=== PATIENT | male | born 1975 | race Caucasian/White ===

== ENCOUNTER 2019-11-14 18:29 | Emergency (ER) | payer OTHER ==
[2019-11-14 18:34] VITALS: BP 145/83
--- NOTE | 2019-11-14 19:21 | ER Document Report ---
ED Medical Screen (RME) - General Chief Complaint: Flank Pain Stated Complaint: FLANK PAIN Time Seen by Provider: 11/14/19 19:15 Notes: Patient is a 44-year-old male who presents emergency department with a chief complaint of right lower quadrant abdominal pain. Patient states that this started about an hour ago. He ended up sweating at that time. He has history of a cholecystectomy and appendectomy in the past. Denies any history of kidney stones. Patient states that he actually feels better now denies any pain. Exam: Soft, nontender abdomen. I have greeted and performed a rapid initial assessment of this patient. A comprehensive ED assessment and evaluation of the patient, analysis of test results and completion of medical decision making process will be conducted by an additional ED providers. TRAVEL OUTSIDE OF THE [place] IN LAST 30 DAYS: No - Related Data Allergies/Adverse Reactions: No Known Allergies Allergy (Verified 11/13/16 13:31) Past Medical History Traumatic Medical History: Reports: Hx Traumatic Brain Injury Past Surgical History: Reports: Hx Appendectomy, Hx Cholecystectomy - Immunizations Hx Diphtheria, Pertussis, Tetanus Vaccination: Yes Physical Exam - Vital signs Vitals: Temp Pulse Resp BP Pulse Ox 97.6 F 79 20 145/83 H 97 11/14/19 18:33 11/14/19 18:33 11/14/19 18:33 11/14/19 18:33 11/14/19 18:33 Course - Vital Signs Vital signs: Temp Pulse Resp BP Pulse Ox 97.6 F 79 20 145/83 H 97 11/14/19 18:33 11/14/19 18:33 11/14/19 18:33 11/14/19 18:33 11/14/19 18:33
[2019-11-14 20:11] LABS: ABSOLUTE BASOPHILS # (AUTO) 0.1 10^3/uL (0.0-0.2); ABSOLUTE EOSINOPHILS # (AUTO) 0.2 10^3/uL (0.0-0.6); ABSOLUTE LYMPHOCYTES (AUTO) 3.5 10^3/uL (0.5-4.7); ABSOLUTE MONOCYTES (AUTO) 0.7 10^3/uL (0.1-1.4); ABSOLUTE NEUT (AUTO) 7.8 10^3/uL (1.7-8.2); EOSINOPHILS % (AUTO) 1.7 % (0-6); HEMOGLOBIN 16.4 g/dL (13.5-17.0); LYMPHOCYTES % (AUTO) 28.3 % (13-45); MEAN CORPUSCULAR HEMOGLOBIN 29.5 pg (27.0-33.4); MEAN CORPUSCULAR VOLUME 87 fl (80-97); MONOCYTES % (AUTO) 5.7 % (3-13); PLATELET COUNT 247 10^3/uL (150-450); RED BLOOD COUNT 5.55 10^6/uL (4.35-5.55); RED CELL DISTRIBUTION WIDTH 13.5 % (11.5-14.0); SEGMENTED NEUTROPHILS % (AUTO) 63.3 % (42-78); TOTAL CELLS COUNTED % (AUTO) 100 %; WHITE BLOOD COUNT 12.3 10^3/uL (4.0-10.5)
[2019-11-14 20:16] LABS: APPEARANCE,URINE SLIGHTLY-CLOUDY; BILIRUBIN,URINE NEGATIVE (NEGATIVE); COLOR,URINE YELLOW; GLUCOSE, URINE NEGATIVE (NEGATIVE); KETONES,URINE NEGATIVE (NEGATIVE); LEUKOCYTE ESTERASE,URINE NEGATIVE (NEGATIVE); NITRITE,URINE NEGATIVE (NEGATIVE); PROTEIN,URINE 100 mg/dL (NEGATIVE); URINE SPECIFIC GRAVITY 1.028; UROBILINOGEN,URINE NEGATIVE mg/dL (<2.0)
[2019-11-14 20:34] LABS: ALBUMIN 4.1 g/dL (3.5-5.0); ALKALINE PHOSPHATASE 82 U/L (38-126); ANION GAP 10 (5-19); ASPARTATE AMINO TRANSFERASE 27 U/L (17-59); BILIRUBIN,DIRECT 0.2 mg/dL (0.0-0.4); BILIRUBIN,TOTAL 0.8 mg/dL (0.2-1.3); BLOOD UREA NITROGEN 24 mg/dL (7-20); CALCIUM 9.7 mg/dL (8.4-10.2); CARBON DIOXIDE 29 mmol/L (22-30); CHLORIDE 98 mmol/L (98-107); GLUCOSE 146 mg/dL (75-110); POTASSIUM 3.8 mmol/L (3.6-5.0); TOTAL PROTEIN 7.7 g/dL (6.3-8.2)
== END 2019-11-14 21:20 | disposition left against medical advice (07) ==
LOC: ER 18:29
DX: R10.31 Right lower quadrant pain (principal); R61 Generalized hyperhidrosis; Z90.49 Acquired absence of other specified parts of digestive tract; Z53.20 Procedure and treatment not carried out because of patient's decision for unspecified reasons
CPT/HCPCS: 36415; 80053; 81001; 85025; 99281

== ENCOUNTER 2019-11-15 08:42 | Emergency (ER) | payer OTHER ==
[2019-11-15] MEDS ORDERED: ONDANSETRON HCL INJ/PF 4 MG/2 ML SDV IV ONE (10:40)
[2019-11-15] MEDS ORDERED: NORMAL SALINE 1000 ML 1,000 ML IV ONE (10:40)
[2019-11-15] MEDS ORDERED: KETOROLAC TROMETHAMINE INJ/PF 30 MG/1 ML SDV IV ONE (10:40)
--- NOTE | 2019-11-15 10:41 | ER Document Report ---
ED Medical Screen (RME) - General Chief Complaint: Abdominal Pain Stated Complaint: ABDOMINAL PAIN Time Seen by Provider: 11/15/19 10:36 Mode of Arrival: Ambulatory Information source: Patient Notes: Otherwise healthy 44-year-old male presenting with right lower quadrant abdominal pain right flank pain that began approximately 24 hours ago. Patient was seen in this emergency department last night, states that he left after his labs are drawn as his pain had completely resolved. He states he has a history of a cholecystectomy and appendectomy. He denies any fevers but reports sweats. Reports nausea without vomiting. Abdomen: Soft, nontender I have greeted and performed a rapid initial assessment of this patient. A comprehensive ED assessment and evaluation of the patient, analysis of test results and completion of the medical decision making process will be conducted by additional ED providers. I have specifically instructed the patient or family members with the patient to immediately return to any nursing staff should anything change in the patient's condition or with their chief complaint. TRAVEL OUTSIDE OF THE [place] IN LAST 30 DAYS: No - Related Data Allergies/Adverse Reactions: meperidine [From Demerol] Adverse Reaction (Verified 11/15/19 10:33) Past Medical History Endocrine Medical History: Reports: Hx Diabetes Mellitus Type 2 Traumatic Medical History: Reports: Hx Traumatic Brain Injury Past Surgical History: Reports: Hx Appendectomy, Hx Cholecystectomy - Immunizations Hx Diphtheria, Pertussis, Tetanus Vaccination: Yes Physical Exam - Vital signs Vitals: Temp Pulse Resp BP Pulse Ox 97.9 F 78 18 128/67 H 97 11/15/19 09:09 11/15/19 09:09 11/15/19 09:09 11/15/19 09:09 11/15/19 09:09 Course - Vital Signs Vital signs: Temp Pulse Resp BP Pulse Ox 97.9 F 78 18 128/67 H 97 11/15/19 09:09 11/15/19 09:09 11/15/19 09:09 11/15/19 09:09 11/15/19 09:09
[2019-11-15 11:21] LABS: APPEARANCE,URINE CLEAR; BILIRUBIN,URINE NEGATIVE (NEGATIVE); COLOR,URINE YELLOW; GLUCOSE, URINE NEGATIVE (NEGATIVE); KETONES,URINE TRACE mg/dL (NEGATIVE); LEUKOCYTE ESTERASE,URINE NEGATIVE (NEGATIVE); NITRITE,URINE NEGATIVE (NEGATIVE); PROTEIN,URINE NEGATIVE (NEGATIVE); URINE SPECIFIC GRAVITY 1.024; UROBILINOGEN,URINE NEGATIVE mg/dL (<2.0)
--- NOTE | 2019-11-15 11:21 | RADIOLOGY REPORT (SQ) ---
EXAM DESCRIPTION: CT ABD/PELVIS NO ORAL OR IV COMPLETED DATE/TIME: 11/15/2019 11:12 am REASON FOR STUDY: eval for renal stone, R flank/RLQ pain COMPARISON: None. TECHNIQUE: CT scan of the abdomen and pelvis performed without intravenous or oral contrast. Images reviewed with lung, soft tissue, and bone windows. Reconstructed coronal and sagittal MPR images revi ewed. All images stored on PACS. All CT scanners at this facility use dose modulation, iterative reconstruction, and/or weight based d osing when appropriate to reduce radiation dose to as low as reasonably achievable (ALARA). [facility]: Dose Right [facility]: CareDose [facility]: Dose Right [facility]: Teradose 4D [facility]: Smart VoiceObjects RADIATION DOSE: CT Rad equipment meets quality standard of care and radiation dose reduction techniq ues were employed. CTDIvol: 17.7 mGy. DLP: 1081 mGy-cm.mGy. LIMITATIONS: None. FINDINGS: LOWER CHEST: No significant findings. No nodules or infiltrates. NON-CONTRASTED LIVER, SPLEEN, ADRENALS: Evaluation limited by lack of IV contrast. No identified sign ificant masses. PANCREAS: No masses. No peripancreatic inflammatory changes. GALLBLADDER: Surgically absent. RIGHT KIDNEY AND URETER: No suspicious masses. Assessment limited by lack of IV contrast. No signif icant calcifications. No hydronephrosis or hydroureter. LEFT KIDNEY AND URETER: No suspicious masses. Assessment limited by lack of IV contrast. No signifi cant calcifications. No hydronephrosis or hydroureter. AORTA AND RETROPERITONEUM: No aneurysm. No retroperitoneal masses or adenopathy. BOWEL AND PERITONEAL CAVITY: No obvious masses or inflammatory changes. No free fluid. APPENDIX: Surgically absent. PELVIS, BLADDER, AND ABDOMINAL WALL:No abnormal masses or free fluid. There is an umbilical hernia c ontaining omental fat only. BONES: No significant findings. OTHER: No other significant finding. IMPRESSION: NO SIGNIFICANT OR ACUTE PROCESS IN THE ABDOMEN OR PELVIS. COMMENT: Quality ID # [id number]: Final reports with documentation of one or more dose reduction techniques (e.g., Automated exposure control, adjustment of the mA and/or kV according to patient size, use of iterative reconstruction technique) TECHNICAL DOCUMENTATION: JOB ID: [id number] [employer]- All Rights Reserved Reading location - IP/workstation name: [email or web address]
[2019-11-15 11:47] LABS: ABSOLUTE BASOPHILS # (AUTO) 0.1 10^3/uL (0.0-0.2); ABSOLUTE EOSINOPHILS # (AUTO) 0.2 10^3/uL (0.0-0.6); ABSOLUTE LYMPHOCYTES (AUTO) 1.8 10^3/uL (0.5-4.7); ABSOLUTE MONOCYTES (AUTO) 0.7 10^3/uL (0.1-1.4); ABSOLUTE NEUT (AUTO) 8.6 10^3/uL (1.7-8.2); BASOPHILS % (AUTO) 0.9 % (0-2); EOSINOPHILS % (AUTO) 1.7 % (0-6); HEMATOCRIT 48.9 % (37.9-51.0); HEMOGLOBIN 16.4 g/dL (13.5-17.0); MEAN CORPUSCULAR HGB CONC 33.6 g/dL (32.0-36.0); MEAN CORPUSCULAR VOLUME 86 fl (80-97); MONOCYTES % (AUTO) 6.5 % (3-13); PLATELET COUNT 247 10^3/uL (150-450); RED BLOOD COUNT 5.67 10^6/uL (4.35-5.55); RED CELL DISTRIBUTION WIDTH 13.7 % (11.5-14.0); SEGMENTED NEUTROPHILS % (AUTO) 74.9 % (42-78); TOTAL CELLS COUNTED % (AUTO) 100 %; WHITE BLOOD COUNT 11.5 10^3/uL (4.0-10.5)
[2019-11-15 12:04] LABS: ALBUMIN 3.9 g/dL (3.5-5.0); ALKALINE PHOSPHATASE 85 U/L (38-126); ANION GAP 11 (5-19); ASPARTATE AMINO TRANSFERASE 38 U/L (17-59); BILIRUBIN,DIRECT 0.1 mg/dL (0.0-0.4); BLOOD UREA NITROGEN 17 mg/dL (7-20); CALCIUM 9.4 mg/dL (8.4-10.2); CARBON DIOXIDE 26 mmol/L (22-30); CHLORIDE 101 mmol/L (98-107); GLUCOSE 127 mg/dL (75-110); POTASSIUM 4.1 mmol/L (3.6-5.0); TOTAL PROTEIN 7.4 g/dL (6.3-8.2)
--- NOTE | 2019-11-15 12:28 | ER Document Report ---
ED GI/ - General Chief Complaint: Abdominal Pain Stated Complaint: ABDOMINAL PAIN Time Seen by Provider: 11/15/19 10:36 Primary Care Provider: KARLI TORRES PA [Primary Care Provider] - Follow up as needed Mode of Arrival: Ambulatory Information source: Patient Notes: Patient complains of generalized abdominal pain since yesterday. Pain was sharp. Pain resolved with Toradol here. He had one episode of diaphoresis yesterday none today. He was evaluated here in the emergency room yesterday sent home and comes back for continued similar symptoms. No chest pain or shortness of breath. Past abdominal surgical history include cholecystectomy and appendectomy. No urinary complaints. No blood in the urine. No rashes. No other complaints. Pain is worse on the right side of the abdomen. Patient ate some eggs yesterday before the symptoms started. TRAVEL OUTSIDE OF THE [place] IN LAST 30 DAYS: No - Related Data Allergies/Adverse Reactions: meperidine [From Demerol] Adverse Reaction (Verified 11/15/19 10:33) Past Medical History - General Information source: Patient - Social History Smoking Status: Never Smoker Family History: Reviewed & Not Pertinent Patient has suicidal ideation: No Patient has homicidal ideation: No Endocrine Medical History: Reports: Hx Diabetes Mellitus Type 2 Traumatic Medical History: Reports: Hx Traumatic Brain Injury Past Surgical History: Reports: Hx Appendectomy, Hx Cholecystectomy - Immunizations Hx Diphtheria, Pertussis, Tetanus Vaccination: Yes Review of Systems - Review of Systems Constitutional: denies: Chills, Fever Gastrointestinal: Abdominal pain, Nausea -: Yes All other systems reviewed and negative Physical Exam - Vital signs Vitals: Temp Pulse Resp BP Pulse Ox 97.9 F 78 18 128/67 H 97 11/15/19 09:09 11/15/19 09:09 11/15/19 09:09 11/15/19 09:09 11/15/19 09:09 Interpretation: Normal - General General appearance: Appears well, Alert - HEENT Head: Normocephalic, Atraumatic Eyes: Normal Pupils: PERRL - Respiratory Respiratory status: No respiratory distress Chest status: Nontender Breath sounds: Normal Chest palpation: Normal - Cardiovascular Rhythm: Regular Heart sounds: Normal auscultation Murmur: No - Abdominal Inspection: Normal Distension: No distension Bowel sounds: Normal Tenderness: Nontender. No: Guarding, Rebound Organomegaly: No organomegaly Notes: ELEVATED BMI - Back Back: Normal, Nontender - Extremities General upper extremity: Normal inspection, Nontender, Normal color, Normal ROM, Normal temperature General lower extremity: Normal inspection, Nontender, Normal color, Normal ROM, Normal temperature, Normal weight bearing. No: Joseph's sign - Neurological Neuro grossly intact: Yes Cognition: Normal Orientation: AAOx4 Rosebud Coma Scale Eye Opening: Spontaneous Rosebud Coma Scale Verbal: Oriented Hermes Coma Scale Motor: Obeys Commands Rosebud Coma Scale Total: 15 Speech: Normal Motor strength normal: LUE, RUE, LLE, RLE Sensory: Normal - Psychological Associated symptoms: Normal affect, Normal mood - Skin Skin Temperature: Warm Skin Moisture: Dry Skin Color: Normal Course - Re-evaluation Re-evalutation: 11/15/19 12:[address] abdomen and pelvis per radiology shows no acute disease. Patient's pain resolved with Toradol here. 11/15/19 12:34 EKG per me shows normal sinus rhythm at a rate of 65 with normal axis QRS. Patient feels better. Will discharge home. Patient will return at once if w orse or new symptoms and follow-up with his own doctor tomorrow. - Vital Signs Vital signs: Temp Pulse Resp BP Pulse Ox 97.9 F 78 18 128/67 H 97 11/15/19 09:09 11/15/19 09:09 11/15/19 09:09 11/15/19 09:09 11/15/19 09:09 - Laboratory Result Diagrams: 11/15/19 11:37 11/15/19 11:37 Laboratory results interpreted by me: 11/15/19 11/15/19 11/15/19 10:53 11:37 11:37 WBC 11.5 H RBC 5.67 H Absolute Neuts (auto) 8.6 H Glucose 127 H Urine Ketones TRACE H Discharge - Discharge Clinical Impression: Abdominal pain Qualifiers: Abdominal location: unspecified location Qualified Code(s): R10.9 - Unspecified abdominal pain Leukocytosis Qualifiers: Leukocytosis type: unspecified Qualified Code(s): D72.829 - Elevated white blood cell count, unspecified Condition: Stable Disposition: HOME, SELF-CARE Instructions: Abdominal Pain ([facility]) Additional Instructions: Return at once if worse or new symptoms. Follow-up with your doctor tomorrow for recheck. Referrals: KARLI TORRES PA [Primary Care Provider] - Follow up as needed
[2019-11-15 13:13] VITALS: BP 146/73
--- NOTE | 2019-11-15 16:23 | EKG REPORT ---
SEVERITY:- NORMAL ECG - SINUS RHYTHM : Confirmed by: Alicja Jimenez MD 15-Nov-2019 16:22:12
== END 2019-11-15 13:14 | disposition home or self-care (01) ==
LOC: ER 08:42
DX: R10.9 Unspecified abdominal pain (principal); D72.829 Elevated white blood cell count, unspecified; R11.0 Nausea; E11.9 Type 2 diabetes mellitus without complications; Z90.49 Acquired absence of other specified parts of digestive tract; Z87.820 Personal history of traumatic brain injury
CPT/HCPCS: 93005; 99284; 96361; 96374; 96375; 36415; 83690; 85025; 80053; 81001; 74176; 93010; J1885; J2405; J7030

== ENCOUNTER 2019-12-25 20:16 | Emergency (ER) | payer OTHER ==
[2019-12-25] MEDS ORDERED: IPRATROPIUM/ALBUTEROL 0.5-2.5 MG/3 ML AMPUL NEB ONE (21:57)
--- NOTE | 2019-12-25 21:58 | EKG REPORT ---
SEVERITY:- NORMAL ECG - SINUS RHYTHM : Confirmed by: Alicja Jimenez MD 25-Dec-2019 21:58:38
[2019-12-25] MEDS ORDERED: NORMAL SALINE 1000 ML 1,000 ML IV ONE (21:59)
--- NOTE | 2019-12-25 21:59 | ER Document Report ---
ED Medical Screen (RME) - General Chief Complaint: Breathing Difficulty Stated Complaint: DIFFICULTY BREATHING Time Seen by Provider: 12/25/19 21:54 Primary Care Provider: KARLI TORRES PA [Primary Care Provider] - Follow up as needed Notes: Patient presents complaining of cold symptoms for the past 5 days. Patient states that the cough has worsened and he has become short of breath. Patient denies any chest pain. Patient reports subjective fever. No nausea or vomiting. Patient was seen recently and placed on a steroid taper as well as nebulizer. Patient denies any improvement of his symptoms. 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 I have greeted and performed a rapid initial assessment of this patient. A comprehensive ED assessment and evaluation of the patient, analysis of test results and completion of the medical decision making process will be conducted by additional ED providers. TRAVEL OUTSIDE OF THE [place] IN LAST 30 DAYS: No - Related Data Allergies/Adverse Reactions: meperidine [From Demerol] Adverse Reaction (Verified 12/25/19 21:50) Past Medical History Endocrine Medical History: Reports: Hx Diabetes Mellitus Type 2 Traumatic Medical History: Reports: Hx Traumatic Brain Injury Past Surgical History: Reports: Hx Appendectomy, Hx Cholecystectomy - Immunizations Hx Diphtheria, Pertussis, Tetanus Vaccination: Yes Physical Exam - Vital signs Vitals: Temp Pulse Resp BP Pulse Ox 98.2 F 114 H 18 141/87 H 96 12/25/19 20:46 12/25/19 20:46 12/25/19 20:46 12/25/19 20:46 12/25/19 20:46 - Respiratory Respiratory status: No respiratory distress Breath sounds: Nonproductive cough, Wheezing Course - Vital Signs Vital signs: Temp Pulse Resp BP Pulse Ox 98.2 F 114 H 18 141/87 H 96 12/25/19 20:46 12/25/19 20:46 12/25/19 20:46 12/25/19 20:46 12/25/19 20:46 Doctor's Discharge - Discharge Referrals: KARLI TORRES PA [Primary Care Provider] - Follow up as needed
--- NOTE | 2019-12-25 22:40 | RADIOLOGY REPORT (SQ) ---
EXAM DESCRIPTION: PA and lateral chest radiograph CLINICAL HISTORY: 44 years Male, cough, sob COMPARISON: Two views of the chest 06/21/2000 FINDINGS: Lungs: Lungs are mildly hyperinflated. There is pleural-parenchymal scarring in the lingula which is unchanged. No focal consolidation. No pneumothorax or pleural effusion. Mediastinum: Cardiac and mediastinal silhouette are normal. Bones: Osseous structures are normal. IMPRESSION: No acute process. No significant interval change.
[2019-12-25] MEDS: ALBUTEROL SULFATE 0.083% NEB 2.5 MG/3 ML AMPUL NEB SCH ×2 (23:17→23:36)
[2019-12-25 23:23] LABS: ABSOLUTE BASOPHILS # (AUTO) 0.1 10^3/uL (0.0-0.2); ABSOLUTE LYMPHOCYTES (AUTO) 0.8 10^3/uL (0.5-4.7); ABSOLUTE MONOCYTES (AUTO) 0.8 10^3/uL (0.1-1.4); ABSOLUTE NEUT (AUTO) 7.2 10^3/uL (1.7-8.2); BASOPHILS % (AUTO) 0.8 % (0-2); EOSINOPHILS % (AUTO) 0.4 % (0-6); HEMATOCRIT 49.1 % (37.9-51.0); HEMOGLOBIN 17.2 g/dL (13.5-17.0); LYMPHOCYTES % (AUTO) 9.2 % (13-45); MEAN CORPUSCULAR VOLUME 86 fl (80-97); MONOCYTES % (AUTO) 9.2 % (3-13); PLATELET COUNT 263 10^3/uL (150-450); RED BLOOD COUNT 5.74 10^6/uL (4.35-5.55); RED CELL DISTRIBUTION WIDTH 13.4 % (11.5-14.0); SEGMENTED NEUTROPHILS % (AUTO) 80.4 % (42-78); TOTAL CELLS COUNTED % (AUTO) 100 %; WHITE BLOOD COUNT 8.9 10^3/uL (4.0-10.5)
[2019-12-25 23:33] LABS: ALBUMIN 4.3 g/dL (3.5-5.0); ALKALINE PHOSPHATASE 91 U/L (38-126); ANION GAP 11 (5-19); ASPARTATE AMINO TRANSFERASE 25 U/L (17-59); BILIRUBIN,DIRECT 0.2 mg/dL (0.0-0.4); BILIRUBIN,TOTAL 0.5 mg/dL (0.2-1.3); BLOOD UREA NITROGEN 17 mg/dL (7-20); CALCIUM 9.3 mg/dL (8.4-10.2); CARBON DIOXIDE 29 mmol/L (22-30); CHLORIDE 95 mmol/L (98-107); GLUCOSE 163 mg/dL (75-110); POTASSIUM 4.4 mmol/L (3.6-5.0); TOTAL PROTEIN 8.1 g/dL (6.3-8.2)
[2019-12-26] MEDS ORDERED: ACETAMINOPHEN 325 MG TABLET PO ONE (01:18)
[2019-12-26] MEDS ORDERED: IPRATROPIUM/ALBUTEROL 0.5-2.5 MG/3 ML AMPUL NEB ONE (01:45)
[2019-12-26] MEDS ORDERED: METHYLPREDNISOLONE INJ 125 MG/2 ML SDV IV ONE (01:45)
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
[2019-12-26] MEDS ORDERED: KETOROLAC TROMETHAMINE INJ/PF 30 MG/1 ML SDV IV ONE (03:10)
[2019-12-26] MEDS ORDERED: AZITHROMYCIN 250 MG TABLET PO ONE (03:17)
[2019-12-26 04:05] VITALS: BP 132/60
== END 2019-12-26 04:05 | disposition home or self-care (01) ==
LOC: ER 20:16
DX: J45.909 Unspecified asthma, uncomplicated (principal); J01.00 Acute maxillary sinusitis, unspecified; R05 Cough; R68.83 Chills (without fever); E11.9 Type 2 diabetes mellitus without complications; Z79.84 Long term (current) use of oral hypoglycemic drugs
CPT/HCPCS: 93005; 94640 ×2; 99285; 96361; 96374; 96375; 36415; 87070; 87205; 85025; 80053; 84484; 71046; 93010; J2930; J1885; J7030; J7620 ×2